=== PATIENT | female | born 1945 | race Caucasian/White ===

== ENCOUNTER 2023-04-12 13:24 | Emergency (ER) | payer OTHER ==
[~2023-04-12] VITALS: Ht 147.3 cm; Wt 63.5 kg
[2023-04-12 13:41] VITALS: BP_SYST 141; PULSE 89; RESP 18; TEMP 97.8; O2SAT 96
[2023-04-12 15:17] VITALS: BP_SYST 141; PULSE 89; RESP 18; TEMP 97.8; O2SAT 96
== END 2023-04-12 15:14 | disposition home or self-care (01) ==
LOC: SED 13:24
DX: S16.1XXA Strain of muscle, fascia and tendon at neck level, initial encounter (principal); E11.9 Type 2 diabetes mellitus without complications; I10 Essential (primary) hypertension; Z79.899 Other long term (current) drug therapy; V89.2XXA Person injured in unspecified motor-vehicle accident, traffic, initial encounter; Y93.89 Activity, other specified; Y92.89 Other specified places as the place of occurrence of the external cause; Y99.8 Other external cause status
CPT/HCPCS: 72040-TC; 99283